=== PATIENT | female | born 1975 | race Caucasian/White ===

== ENCOUNTER 2021-07-29 16:50 | Emergency (ER) | payer SELFPAY | END 2021-07-29 17:20 | disposition home or self-care (01) | LOC: MADERS 16:50 | DX: L03.114 Cellulitis of left upper limb (principal); L03.115 Cellulitis of right lower limb; F17.210 Nicotine dependence, cigarettes, uncomplicated | CPT/HCPCS: 99283 ==

== ENCOUNTER 2021-10-08 22:57 | Emergency (ER) | payer SELFPAY ==
[2021-10-08] MEDS ORDERED: Ibuprofen 800 MG TAB ONE (23:26)
[2021-10-09 16:51] LABS: SARS-CoV-2 PCR by NAA Not Detected (NotDetected)
== END 2021-10-09 00:40 | disposition home or self-care (01) ==
LOC: MADERS 22:57
DX: B34.9 Viral infection, unspecified (principal); Z20.822 Contact with and (suspected) exposure to COVID-19; F17.210 Nicotine dependence, cigarettes, uncomplicated
CPT/HCPCS: 71045; 87804; U0003; U0005

== ENCOUNTER 2021-11-09 18:43 | Emergency (ER) | payer SELFPAY ==
[2021-11-09] MEDS ORDERED: Azithromycin 250 MG TAB ONE (19:29)
[2021-11-09] MEDS ORDERED: predniSONE 20 MG TAB ONE (19:29)
== END 2021-11-09 19:56 | disposition home or self-care (01) ==
LOC: MADERS 18:43
DX: S29.011A Strain of muscle and tendon of front wall of thorax, initial encounter (principal); J44.9 Chronic obstructive pulmonary disease, unspecified; F17.210 Nicotine dependence, cigarettes, uncomplicated; X58.XXXA Exposure to other specified factors, initial encounter
CPT/HCPCS: 99406; J7512